=== PATIENT | female | born 1960 | race American Indian/Alaskan Native ===

== ENCOUNTER 2019-11-23 10:17 | Emergency (ER) | payer SELFPAY ==
[2019-11-23] MEDS ORDERED: IPRATROPIUM/ALBUTEROL SULFATE 3 ML AMPUL.NEB IH ONE (13:01)
--- NOTE | 2019-11-23 13:15 | Emergency Department Report ---
- General Chief Complaint: Nausea/Vomiting/Diarrhea Stated Complaint: FLU SYM Time Seen by Provider: 11/23/19 12:27 Source: patient Mode of arrival: Ambulatory Limitations: No Limitations - History of Present Illness Initial Comments: This pleasant 58-year-old female presents the emergency department with a chief complaint of generalized body aches, cough, congestion, malaise, fever started yesterday. Patient states 2 days ago her symptoms started with a cough only and yesterday all her other symptoms started. The triage note there was a complaint of stomach cramps and nausea however the patient declined sustained and there is no nausea or vomiting and no abdominal pain. She denies any chest pain, shortness of breath, nausea, vomiting, diarrhea, melena, hematochezia, h ematemesis, weakness, hemoptysis, lower extremity edema or pain or any other associated symptoms. - Related Data Home Medications Medication Instructions Recorded Confirmed Last Taken Aspirin [Aspirin BABY CHEW TAB] 81 mg PO QDAY 03/18/15 11/23/19 09/03/17 Atorvastatin [Lipitor] 40 mg PO QHS 03/18/15 11/23/19 09/03/17 Metoprolol Xl [Metoprolol 50 mg PO DAILY 03/18/15 09/04/17 09/03/17 SUCCINATE ER TAB] metFORMIN [Glucophage] 500 mg PO BID 03/18/15 09/04/17 09/03/17 Valsartan/Hydrochlorothiazide 1 tab PO QDAY 09/04/17 11/23/19 09/03/17 [Diovan Hct 160-12.5 mg] Previous Rx's Medication Instructions Recorded Last Taken Type Albuterol Sulfate [Albuterol 0.63% 0.63 mg IH Q4HR PRN #2 ml 09/04/17 Unknown Rx NEBS] Albuterol Sulfate [Proair 90 mcg IH Q4HR PRN #2 aer.pow.ba 09/04/17 Unknown Rx Respiclick] Fluticasone [Flonase] 1 spray NS QDAY #1 bottle 09/04/17 Unknown Rx Ipratropium [place] [Atrovent Hfa] 12.9 gm IH Q4HR #2 hfa.aer.ad 09/04/17 Unknown Rx predniSONE [Deltasone] 40 mg PO QDAY #8 tab 09/04/17 Unknown Rx Benzonatate [Tessalon Perles] 100 mg PO Q8HR PRN #30 capsule 09/16/18 Unknown Rx Cetirizine HCl [ZyrTEC] 10 mg PO QDAY #30 capsule 09/16/18 Unknown Rx ALBUTEROL NEB's [Proventil 0.083% 2.5 mg IH Q4HR PRN #90 ml 11/23/19 Unknown Rx NEBS] Brompheniramine/Pseudoephed/Dm 5 ml PO TID #118 syrup 11/23/19 Unknown Rx [Bromfed Dm Cough Syrup] Nebulizer and Compressor [[place] 1 each MC ONCE #1 device 11/23/19 Unknown Rx Choice Nebulizer] methylPREDNISolone [Medrol 4MG 4 mg PO ONCE #1 tab.ds.pk 11/23/19 Unknown Rx DOSEPAK (21 tabs)] Allergies Allergy/AdvReac Type Severity Reaction Status Date / Time No Known Allergies Allergy Verified 11/23/19 11:00 ED Review of Systems ROS: Stated complaint: FLU SYM Other details as noted in HPI Comment: All other systems reviewed and negative Constitutional: see HPI, chills, fever, malaise Eyes: denies: eye pain, eye discharge, vision change ENT: denies: ear pain, throat pain Respiratory: see HPI, cough. denies: shortness of breath, wheezing Cardiovascular: denies: chest pain, palpitations Endocrine: no symptoms reported Gastrointestinal: denies: abdominal pain, nausea, diarrhea Genitourinary: denies: urgency, dysuria, discharge Musculoskeletal: as per HPI. denies: back pain, joint swelling, arthralgia Skin: denies: rash, lesions Neurological: denies: headache, weakness, paresthesias Psychiatric: denies: anxiety, depression Hematological/Lymphatic: denies: easy bleeding, easy bruising ED Past Medical Hx - Past Medical History Previous Medical History?: Yes Hx Hypertension: Yes Hx Diabetes: Yes Hx Asthma: Yes - Surgical History Past Surgical History?: Yes Hx Coronary Stent: Yes () Additional Surgical History: 1989, Uterine fibroid embolization, 2 vaginal polpys removed - Social History Smoking Status: Never Smoker Substance Use Type: None - Medications Home Medications: Home Medications Medication Instructions Recorded Confirmed Last Taken Type Aspirin [Aspirin BABY CHEW TAB] 81 mg PO QDAY 03/18/15 11/23/19 09/03/17 History Atorvastatin [Lipitor] 40 mg PO QHS 03/18/15 11/23/19 09/03/17 History Metoprolol Xl [Metoprolol 50 mg PO DAILY 03/18/15 09/04/17 09/03/17 History SUCCINATE ER TAB] metFORMIN [Glucophage] 500 mg PO BID 03/18/15 09/04/17 09/03/17 History Albuterol Sulfate [Albuterol 0.63% 0.63 mg IH Q4HR PRN #2 ml 09/04/17 11/23/19 Unknown Rx NEBS] Albuterol Sulfate [Proair 90 mcg IH Q4HR PRN #2 aer.pow.ba 09/04/17 11/23/19 Unknown Rx Respiclick] Fluticasone [Flonase] 1 spray NS QDAY #1 bottle 09/04/17 11/23/19 Unknown Rx Ipratropium [place] [Atrovent Hfa] 12.9 gm IH Q4HR #2 hfa.aer.ad 09/04/17 11/23/19 Unknown Rx Valsartan/Hydrochlorothiazide 1 tab PO QDAY 09/04/17 11/23/19 09/03/17 History [Diovan Hct 160-12.5 mg] predniSONE [Deltasone] 40 mg PO QDAY #8 tab 09/04/17 11/23/19 Unknown Rx Benzonatate [Tessalon Perles] 100 mg PO Q8HR PRN #30 capsule 09/16/18 11/23/19 Unknown Rx Cetirizine HCl [ZyrTEC] 10 mg PO QDAY #30 capsule 09/16/18 11/23/19 Unknown Rx ALBUTEROL NEB's [Proventil 0.083% 2.5 mg IH Q4HR PRN #90 ml 11/23/19 Unknown Rx NEBS] Brompheniramine/Pseudoephed/Dm 5 ml PO TID #118 syrup 11/23/19 Unknown Rx [Bromfed Dm Cough Syrup] Nebulizer and Compressor [[place] 1 each MC ONCE #1 device 11/23/19 Unknown Rx Choice Nebulizer] methylPREDNISolone [Medrol 4MG 4 mg PO ONCE #1 tab.ds.pk 11/23/19 Unknown Rx DOSEPAK (21 tabs)] ED Physical Exam - General Limitations: No Limitations General appearance: alert, in no apparent distress - Head Head exam: Present: atraumatic, normocephalic - Eye Eye exam: Present: normal appearance, PERRL, EOMI Pupils: Present: normal accommodation - ENT ENT exam: Present: normal exam, normal orophraynx, mucous membranes moist, TM's normal bilaterally - Neck Neck exam: Present: normal inspection, full ROM. Absent: tenderness, meningismus - Respiratory Respiratory exam: Present: normal lung sounds bilaterally. Absent: respiratory distress, wheezes, rales, rhonchi, stridor, accessory muscle use - Cardiovascular Cardiovascular Exam: Present: regular rate, normal rhythm, normal heart sounds. Absent: systolic murmur, diastolic murmur, rubs, gallop - GI/Abdominal GI/Abdominal exam: Present: soft, normal bowel sounds. Absent: distended, tenderness, guarding, rebound, rigid - Extremities Exam Extremities exam: Present: normal inspection, full ROM, normal capillary refill. Absent: tenderness - Back Exam Back exam: Present: normal inspection, full ROM. Absent: tenderness, CVA tenderness (R), CVA tenderness (L) - Neurological Exam Neurological exam: Present: alert, oriented X3, normal gait - Psychiatric Psychiatric exam: Present: normal affect, normal mood - Skin Skin exam: Present: warm, dry, intact, normal color. Absent: rash ED Course Vital Signs 11/23/19 11/23/19 11/23/19 10:25 13:21 13:36 Temperature 99.2 F Pulse Rate 115 H 87 Pulse Rate [ 86 Anterior Bilateral Throughout] Respiratory 16 18 Rate Respiratory 18 Rate [Anterior Bilateral Throughout] Blood Pressure 196/110 Blood Pressure 172/104 [Right] O2 Sat by Pulse 93 95 Oximetry Critical care attestation.: If time is entered above; I have spent that time in minutes in the direct care of this critically ill patient, excluding procedure time. ED Disposition Clinical Impression: Influenza-like symptoms Acute bronchitis Qualifiers: Bronchitis organism: unspecified organism Qualified Code(s): J20.9 - Acute bronchitis, unspecified Disposition: DC-01 TO HOME OR SELFCARE Is pt being admited?: No Condition: Stable Instructions: Acute Bronchitis (ED) Prescriptions: Brompheniramine/Pseudoephed/Dm [Bromfed Dm Cough Syrup] 5 ml PO TID #118 syrup Nebulizer and Compressor [[place] Choice Nebulizer] 1 each MC ONCE #1 device methylPREDNISolone [Medrol 4MG DOSEPAK (21 tabs)] 4 mg PO ONCE #1 tab.ds.pk ALBUTEROL NEB's [Proventil 0.083% NEBS] 2.5 mg IH Q4HR PRN #90 ml PRN Reason: Wheezing Referrals: PRIMARY CARE, [Primary Care Provider] - 3-5 Days [facility] [Provider Group] - 3-5 Days Forms: Work/School Release Form(ED) Time of Disposition: 14:49
[2019-11-23 13:22] VITALS: BP 172/104
--- NOTE | 2019-11-23 13:34 | XRay Report ---
CHEST 2 VIEWS INDICATION: cough, fever. COMPARISON: None. FINDINGS: Support devices: None. Heart: Within normal limits. Lungs/Pleura: No acute air space or interstitial disease. No significant pleural effusion. IMPRESSION: No acute findings. Signer Name: Ivan Bass MD Signed: 11/23/2019 1:30 PM Workstation Name: [id number]
== END 2019-11-23 15:09 | disposition home or self-care (01) ==
LOC: ED 10:17
DX: J20.9 Acute bronchitis, unspecified (principal); I10 Essential (primary) hypertension; E11.9 Type 2 diabetes mellitus without complications; J45.909 Unspecified asthma, uncomplicated; Z95.5 Presence of coronary angioplasty implant and graft; Z79.899 Other long term (current) drug therapy; Z79.84 Long term (current) use of oral hypoglycemic drugs
CPT/HCPCS: 71046; 87400; 94640; 94644